=== PATIENT | male | born 2000 | race Caucasian/White ===

== ENCOUNTER 2025-05-31 00:57 | Emergency (ER) | payer BC, SELFPAY ==
--- OUTSIDE RECORDS SUMMARY | 2025-05-26 15:20 | XMS_ITS | Encounter Summary ---
Author Organization [facility] Address [address] [place] [address] Care Team Providers Care Safety Lead Name Role Phone Irasema Brandt Primary Care Provider Reason for Visit * Reason Comments Physical Yearly physical Encounter Details Date Type Department Care Team ([facility] st Contact Info) Description 05/26/2025 3:20 PM CDT Office Visit [facility] [place] [address] [place] [address] [facility] [address] [place] [address] Normal routine physical examination (Primary Dx); Environmental and seasonal allergies Social History Tobacco Use Types Packs/Day Years Used Date Smoking Tobacco: Never Smokeless Tobacco: Never Alcohol Use Standard Drinks/Week Comments No 0 (1 standard drink = 0.6 oz pur e alcohol) Feeling Safe Answer Date Recorded Within the last year, have y ou been afraid of your partner or ex-partner? No 05/05/2019 Within the last year, have y ou been humiliated or emotionally abused in other ways by your partner or ex-partner? No Within the last year, have y ou been kicked, hit, slapped, or otherwise physically hurt by your partner or ex-partner? No 05/05/2019 Within the last year, have y ou been raped or forced to have any kind of sexual activity by your partner or ex-partner? No 05/05/2019 Social Connections Answer Date Recorded In a typical week, how many times do you talk on the phone with family, friends, or neighbors? Never 05/05/2019 How often do you get together with friends or re latives? Never 05/05/2019 How often do you attend anabaptist or confucianist serv ices? Never 05/05/2019 Do you belong to any clubs o r organizations such as anabaptist groups, unions, fraternal or athletic groups, or school groups? No 05/05/2019 How often do you attend meet ings of the clubs or organizations you belong to? Never 05/05/2019 Are you , , di vorced, , never , or living with a partner? Never 05/05/2019 Financial Resource Strain Answer Date R ecorded How hard is it for you to pa y for the very basics like food, housing, medical care, and heating? Not hard at all 05/05/2019 Food Insecurity Answer Date Recorded Within the past 12 months, y ou worried that your food would run out before you got the money to buy more. Never true 05/05/20 19 Within the past 12 months, t he food you bought just didn't last and you didn't have money to get more. Never true 05/05/2019 Transportation Needs Answer Date Record ed In the past 12 months, has l ack of transportation kept you from medical appointments or from getting medications? No 04/2019 In the past 12 months, has l ack of transportation kept you from meetings, work, or from getting things needed for daily living? 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 Gender Identity Not on file Sexual Orientation Not on file documented as of this encounter Last Filed Vital Signs Vital Sign Reading Time Taken Comments Blood Pressure 122/64 05/26/2025 3:26 PM CDT Pulse 100 05/26/2025 3:26 PM CDT Temperature 36.5 C (97.7 F) 05/26/2025 3:26 PM CDT Respiratory Rate 18 05/26/2025 3:26 PM CDT Oxygen Saturation 98% 05/26/2025 3:26 PM CDT Inhaled Oxygen Concentration - - Weight 82.1 kg (181 lb) 05/26/2025 3:26 PM CDT Height 182.9 cm (6') 05/26/2025 3:26 PM CDT Body Mass Index 24.55 05/26/2025 3:26 PM CDT documented in this encounter Progress Notes * Joann Jacobo, STATION TENDER - 05/26/2025 3:35 PM CDT Chief Complaint Patient presents with Physical Yearly physical Patient Active Problem List Diagnosis Code Environmental and seasonal allergies J30.89 History of Present Illness A 24-year-old male presents for a yearly physical exam. The patient has not had any recent blood work and is generally well, though he occasionally experiences injuries. Recently, he sustained a head injury from a chain, resulting in a large knot that persisted for three days. He experiences nausea after breakfast due to postnasal drainage and uses nasal sprays intermittently. He was previously under the care of vocational childcare teacher Dr. Kelly in [place], where he received weekly allergy injections for 1-2 years but discontinued them due to logistical issues. He is uncertain about resuming the injections. He continues to take Singulair and cetirizine for his allergies. 10 point review of systems is otherwise negative except as mentioned above. Past Medical History: Diagnosis Date Asthma allergy and exercised induced Motion sickness Patient denies relevant medical history Current Outpatient Medications Medication Instructions cetirizine (ZYRTEC) 10 mg, Oral, DAILY EPINEPHrine (EPIPEN) 0.3 mg, IM, DAILY PRN fluticasone propionate (FLONASE) 50 mcg/spray [place], Suspension nasal inhaler 2 Sprays, Both Nostrils, DAILY montelukast (SINGULAIR) 10 mg, Oral, DAILY AT BEDTIME Past Surgical History: Procedure Laterality Date HX CLUB FOOT RELEASE HX TYMPANOSTOMY IA COLONOSCOPY FLX DX W/COLLJ SPEC WHEN PFRMD N/A 12/31/2016 COLONOSCOPY performed by Evelina Khoury MD at [facility] Past social, family, and medical history reviewed. BP 122/64 Pulse 100 Temp 97.7 ??F (36.5 ??C) Resp 18 Ht 6' (1.829 m) Wt 82.1 kg (181 lb) SpO2 98% BMI 24.55 kg/m?? Physical Exam Constitutional: General: He is not in acute distress. Appearance: Normal appearance. He is not ill-appearing. HENT: Head: Normocephalic. Right Ear: External ear normal. Left Ear: External ear normal. Nose: Nose normal. Eyes: Conjunctiva/sclera: Conjunctivae normal. Cardiovascular: Rate and Rhythm: Normal rate and regular rhythm. Pulses: Normal pulses. Heart sounds: Normal heart sounds. No murmur heard. Pulmonary: Effort: Pulmonary effort is normal. No respiratory distress. Breath sounds: Normal breath sounds. Musculoskeletal: Right lower leg: No edema. Left lower leg: No edema. Skin: General: Skin is warm and dry. Neurological: Mental Status: He is alert and oriented to person, place, and time. Psychiatric: Mood and Affect: Mood normal. Behavior: Behavior normal. ICD-10-CM ICD-9-CM 1. Normal routine physical examination Z00.00 V70.9 CBC WITH DIFFERENTIAL COMPREHENSIVE METABOLIC PANEL HEMOGLOBIN A1C LIPID PANEL TSH 2. Environmental and seasonal allergies J30.89 477.8 Assessment & Plan Health maintenance - BP normal today - Comprehensive blood tests today: thyroid function, blood sugar, kidney/liver function, electrolytes, blood counts - Cholesterol panel may be slightly elevated due to non-fasting - Advised yearly physical exams and follow-up on blood work Allergies - Taking Singulair and cetirizine - Previously received allergy shots, did not complete regimen - Advised to consider returning to vocational childcare teacher for evaluation and potential continuation of shots - Encouraged patient to contact office for referral if pursuing SHAHRZAD VaughnC The author of this note, patient (or authorized area representative), and all other persons present consent to the audio recording of this visit for charting documentation purposes. This note was automatically generated, edited by a Quality Regional Climate Change Analyst, and finalized by DEEPTHI Briseno. documented in this encounter Plan of Treatment Not on file documented as of this encounter Procedures Procedure Name Priority Date/Time Associated Diagnosis Comments CBC WITH DIFFERENTIAL Routine 05/26/2025 3:48 PM CDT Normal routine physical examination TSH Routine 05/26/2025 3:48 PM CDT Normal routine physical examination HEMOGLOBIN A1C Routine 05/26/2025 3:48 PM CDT Normal routine physical examination LIPID PANEL Routine 05/26/2025 3:48 PM CDT Normal routine physical examination COMPREHENSIVE METABOLIC PANEL Routine 05/26/2025 3:48 PM CDT Normal routine physical examination documented in this encounter Results * TSH (05/26/2025 3:48 PM CDT) TSH 1.20 0.40 - 4.50 mIU/L [facility] Comment: Test Performed at: [facility] [address] [place] [address] Britany Werner MD Blood 05/26/2025 3:48 PM CDT 05/27/2025 2:09 AM CDT Kevinotilioedgar Jacobo STATION TENDER CHEMISTRY ORDERABLES Final Result [facility] [phone] [facility] [address] [place] [address] * (ABNORMAL) LIPID PANEL (05/26/2025 3:48 PM CDT) CHOLESTEROL 154 <200 mg/dL [facility] HDL 35(L) > OR = 40 mg/dL [facility] TRIGLYCERIDE 196(H) <150 mg/dL [facility] LDL CALCULATED 90 mg/dL (calc) [facility] Comment: Reference range: <100 Desirable range <100 mg/dL for primary prevention; <70 mg/dL for patients with CHD or diabetic patients with > or = 2 CHD risk factors. LDL-C is now calculated using the Rafa calculation, which is a validated novel method providing better accuracy than the Friedewald equation in the estimation of LDL-C. Miguel MARTÍNEZ et al. LEANNA. 2013;310(30): 5831-5146 (http://education.eZ Systems/faq/FKE439) CHOL/HDL RATIO 4.4 <5.0 (calc) [facility] NON-HDL CHOLESTEROL 119 <130 mg/dL (calc) [facility] Comment: For patients with diabetes plus 1 major ASCVD risk factor, treating to a non-HDL-C goal of <100 mg/dL (LDL-C of <70 mg/dL) is considered a therapeutic option. Test Performed at: [facility] [address] [facility] [place] [address] Britany Werner MD Blood 05/26/2025 3:48 PM CDT 05/27/2025 2:09 AM CDT Kevinthai Shmuel Jacobo STATION TENDER CHEMISTRY ORDERABLES Final Result [facility] [phone] [facility] [address] [place] [address] [address] * HEMOGLOBIN A1C (05/26/2025 3:48 PM CDT) HEMOGLOBIN A1C 5.2 <5.7 % [facility] Comment: For the purpose of screening for the presence of diabetes: <5.7% Consistent with the absence of diabetes 5.7-6.4% Consistent with increased risk for diabetes (prediabetes) > or =6.5% Consistent with diabetes This assay result is consistent with a decreased risk of diabetes. Currently, no consensus exists regarding use of hemoglobin A1c for diagnosis of diabetes in children. According to [place] Diabetes Association (ADA) guidelines, hemoglobin A1c <7.0% represents optimal control in non- diabetic patients. Different metrics may apply to specific patient populations. Standards of Medical Care in Diabetes(ADA). ESTIMATED AVERAGE GLUCOSE (MG/DL) 103 mg/dL [facility] ESTIMATED AVERAGE GLUCOSE (MMOL/L) 5.7 mmol/L [facility] Comment: Test Performed at: [place] [address] [facility] [place] [address] Britany Werner MD Blood 05/26/2025 3:48 PM CDT 05/27/2025 2:09 AM CDT Kevinthai Shmuel Jacobo STATION TENDER CHEMISTRY ORDERABLES Final Result [facility] [phone] [facility] [address] [place] [address] * COMPREHENSIVE METABOLIC PANEL (05/26/2025 3:48 PM CDT) GLUCOSE 93 65 - 99 mg/dL [facility] Comment: Fasting reference interval BUN 13 7 - 25 mg/dL [facility] CREATININE 1.18 0.60 - 1.24 mg/dL [facility] GFR 88 > OR = 60 mL/min/1. 73m2 [facility] BUN/CREAT RATIO SEE NOTE: 6 - 22 (calc) [facility] Comment: Not Reported: BUN and Creatinine are within reference range. SODIUM 142 135 - 146 mmol/L [facility] POTASSIUM 3.9 3.5 - 5.3 mmol/L [facility] CHLORIDE 106 98 - 110 mmol/L [facility] CO2 27 20 - 32 mmol/L [facility] CALCIUM 9.4 8.6 - 10.3 mg/dL [facility] TOTAL PROTEIN 6.8 6.1 - 8.1 g/dL [facility] ALBUMIN 4.7 3.6 - 5.1 g/dL [facility] GLOBULIN 2.1 1.9 - 3.7 g/dL (calc) [facility] ALBUMIN/GLOBULIN RATIO 2.2 1.0 - 2.5 (calc) [facility] BILIRUBIN TOTAL 0.7 0.2 - 1.2 mg/dL [facility] ALKALINE PHOSPHATASE 57 36 - 130 U/L [facility] AST 13 10 - 40 U/L [facility] ALT 15 9 - 46 U/L [facility] Comment: Test Performed at: [facility] [address] [place] [address] Britany Werner MD Blood 05/26/2025 3:48 PM CDT 05/27/2025 2:09 AM CDT us Joann Jacobo STATION TENDER CHEMISTRY ORDERABLES Final Result [facility] [phone] [facility] [address] [place] [address] * CBC WITH DIFFERENTIAL (05/26/2025 3:48 PM CDT) WBC 7.8 3.8 - 10.8 Thousand/u L [facility] RBC 4.83 4.20 - 5.80 Million/uL [facility] HEMOGLOBIN 14.1 13.2 - 17.1 g/dL [facility] HEMATOCRIT 42.3 38.5 - 50.0 % [facility] MCV 87.6 80.0 - 100.0 fL [facility] MCH 29.2 27.0 - 33.0 pg [facility] MCHC 33.3 32.0 - 36.0 g/dL [facility] Comment: For adults, a slight decrease in the calculated MCHC value (in the range of 30 to 32 g/dL) is most likely not clinically significant; however, it should be interpreted with caution in correlation with other red cell parameters and the patient's clinical condition. RDW 12.3 11.0 - 15.0 % [facility] PLATELETS 233 140 - 400 Thousand/u L [facility] MPV 11.1 7.5 - 12.5 fL [facility] NEUTROPHIL ABSOLUTE 5,366 1,500 - 7,800 cells/uL [facility] LYMPHOCYTE ABSOLUTE 1,529 850 - 3,900 cells/uL [facility] MONOCYTE ABSOLUTE 554 200 - 950 cells/uL [facility] EOSINOPHIL ABSOLUTE 289 15 - 500 cells/uL [facility] BASOPHILS ABSOLUTE 62 0 - 200 cells/uL [facility] NEUTROPHIL 68.8 % [facility] LYMPHOCYTES 19.6 % [facility] MONOCYTE 7.1 % [facility] EOSINOPHILS 3.7 % [facility] BASOPHILS 0.8 % [facility] Comment: Test Performed at: [facility] [address] [place] [address] Britany Werner MD Blood 05/26/2025 3:48 PM CDT 05/27/2025 2:09 AM CDT us Kevinotilioedgar Jacobo STATION TENDER HEMATOLOGY ORDERABLES Carline l Result [facility] [phone] [facility] [address] [place] [address] documented in this encounter Visit Diagnoses Diagnosis Normal routine physical examination- Primary Reserved for inherently not codable concepts WITHOUT codable children Environmental and seasonal allergies documented in this encounter Care Teams Safety Lead Relationship Specialty Start Date End Date Irasema Brandt DO [address] [place] [address] PCP - General Family Practice 07/22/23 documented as of this encounter
--- OUTSIDE RECORDS SUMMARY | 2025-05-31 01:05 | XMS_ITS | Clinical Summary ---
Author Organization [facility] Business Office Address [address] [place] [address] Care Team Providers Care Braider Operator Name Role Phone Irasema Brandt Primary Care Provider Allergies No known active allergies Medications EPINEPHrine (EPIPEN) 0.3 mg/0.3 mL Auto-InjectorI ndications:Env ironmental and seasonal allergies Inject 0.3 mL (0.3 mg) by intramuscular injection 1 time daily as needed for Anaphylaxis. 1 Each 0 0 Active Additional Information Patient not taking.Reported on 05/26/2025 cetirizine (ZyrTEC) 10 mg tabletIndicati ons:Environmen ely and seasonal allergies Take 1 Tablet (10 mg) by mouth daily. 90 Tablet 4 0 Active montelukast (SINGULAIR) 10 mg tabletIndicati ons:Environmen ely and seasonal allergies Take 1 Tablet (10 mg) by mouth daily at bedtime. 90 Tablet 3 5 Active fluticasone propionate (FLONASE) 50 mcg/spray [place], Suspension nasal inhalerIndicat ions:Environme ntal and seasonal allergies Administer 2 Sprays in each nostril daily. 16 Gram 3 5 Active Additional Information Patient not taking.Reported on 05/26/2025 Active Problems Problem Noted Date Diagnosed Date Environmental and seasonal allergies 08/15/2024 Resolved Problems Problem Noted Date Diagnosed Date Resolved Date Tympanostomy tube check 04/15/2019 05/0 03/2025 TMJ (dislocation of temporomandibular joint) 8 10/08/2018 Dysfunction of right eustachian tube 10/08/2018 04/03/2025 Right ear pain 10/08/2018 04/03/2025 Allergic rhinitis 10/08/2018 04/03/2025 Right otitis media with effusion 10/08/2018 04/03/2025 TMJ inflammation 10/08/2018 04/03/2025 Mesenteric adenitis 12/21/2016 04/03/20 25 Blood in stool 12/21/2016 04/03/2025 Right sided abdominal pain 12/21/2016 0 04/03/2025 Overview (03/28/2021): Likely secondary to mesenteric adenitis Encounters Date Type Department Care Team Description 05/29/2025 Results Follow-Up [facility] [address] [place] [address] Joann Jacobo FNP TSH, LIPID PANEL, HEMOGLOBIN A1C, Additional followed-up results: 2 05/26/2025 3:20 PM CDT Office Visit [facility] [address] [place] [address] Joann Jacobo FNP Normal routine physical examination (Primary Dx); Environmental and seasonal allergies 05/16/2025 External Device Data STL ABSTRACTION Provider, Abstract 04/20/2025 External Device Data STL ABSTRACTION Provider, Abstract 04/20/2025 External Device Data STL ABSTRACTION Provider, Abstract 04/19/2025 External Device Data STL ABSTRACTION Provider, Abstract 04/18/2025 External Device Data STL ABSTRACTION Provider, Abstract 04/03/2025 3:20 PM CDT Office Visit [facility] [address] [place] [address] Joann Jacobo FNP Right otitis media with effusion (Primary Dx); Environmental and seasonal allergies 03/14/2025 External Device Data STL ABSTRACTION Provider, Abstract from Last 3 Months Immunizations Immunization Administration Dates Next Due (ACTHIB/HIBERIX)(2 MOS-5 YRS /6 WKS-4 YRS) HAEMOPHILUS INFLUENZAE TYPE B VACCINE (HIB), PRP-T CONJUGATE, 4 DOSE, 0.5 ML IM 06/08/2002,2000,2000 (ADACEL/BOOSTRIX)(10 YR UP) TDAP VACCINE, 0.5ML, IM 03/30/2014,01/19/2014 (M-M-R II/PRIORIX)(12 MO UP) MEASLES, MUMPS AND RUBELLA VIRUS VACCINE, 0.5 ML IM/SUBCUT 05/22/2006,06/22/2002 (RECOMBIVAX HB/ENGERIX-B)(0- 19 YRS) HEPATITIS B VACCINE 5 MCG/0.5 ML OR 10 MCG/0.5 ML PED OR ADOL 3 DOSE (PF), IM 02/17/2001,2000 (VARIVAX)(12 MOS UP)VARICELL A VIRUS VACCINE (PF) 0.5 ML, SUB CUT 08/18/2001 Dt Dtp Dtap Vaccine 05/22/2006, 2,02/17/2001,12/23,2000 HIB, Unspecified Formulation 06/08/2002, 02/17/2001,2000,10/26 Hepatitis B Vaccine 02/17/2001,2000,1999 IPV/OPV 05/22/2006, 2,2000,10/26 Meningococcal A Conjugate Vaccine IM 06/23/2018 Pneumococcal 7-valent conjug ate vaccine IM 08/18/2001,02/17/2001,2000,10/26 Family History Medical History Relation Name Comments Healthy Father Diabetes Maternal Grandfather Heart Disease Maternal Grandfather Healthy Maternal Grandmother Hypertension Mother Diabetes Paternal Grandfather Diabetes Paternal Grandmother Stroke Paternal Grandmother Healthy Sister Shanell Relation Name Status Comments Father Alive Maternal Grandfather Alive Maternal Grandmother Alive Mother Alive Paternal Grandfather Alive Paternal Grandmother Alive Sister Shanell Alive Social History Tobacco Use Types Packs/Day Years [...] Never 05/05/2019 How often do you attend hindu or pentecostal serv ices? 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 Gender Identity Not on file Sexual Orientation Not on file Last Filed Vital Signs Vital Sign Reading [...] Mass Index 24.55 05/26/2025 3:26 PM CDT Plan of Treatment Health Maintenance Due Date Last Done Comments HPV VACCINES (1 - Male 3-dos e series) 2015 DTAP/TDAP/TD VACCINES (8 - T d or Tdap) 03/30/2024 03/30/2014, 01/19/2014, 05/22/2006, Additional history exists INFLUENZA VACCINE (#1) 2025 09/20/2018 HEPATITIS B VACCINES Completed 02/17/2001, 02/17/2001, 2000, Additional history exists Procedures Procedure Name Priority Date/Time Associated Diagnosis [...] 3:48 PM CDT Normal routine physical examination from Last 3 Months Results * CBC WITH DIFFERENTIAL (05/26/2025 3:48 PM [...] [facility] Comment: Test Performed at: [facility] [address] [place] [address] Britany Werner MD Blood 05/26/2025 3:48 PM CDT 05/27/2025 2:09 AM CDT us Joann Jacobo TALENT ANALYST HEMATOLOGY ORDERABLES Carline l Result [facility] [phone] [address] * TSH (05/26/2025 3:48 PM CDT) [facility] TSH 1.20 0.40 - 4.50 mIU/L [facility] Comment: Test Performed at: [address] [address] Britany Werner MD Blood 05/26/2025 3:48 PM CDT 05/27/2025 2:09 AM CDT Kevinotilioedgar Jacobo [facility] CHEMISTRY ORDERABLES Final Result [facility] [phone] [address] * HEMOGLOBIN A1C (05/26/2025 3:48 PM CDT) [facility] HEMOGLOBIN A1C 5.2 <5.7 % [facility] Comment: For the purpose of screening for the presence of diabetes: <5.7% Consistent with the absence of diabetes 5.7-6.4% Consistent with increased risk for diabetes (prediabetes) > or =6.5% Consistent with diabetes This assay result is consistent with a decreased risk of diabetes. Currently, no consensus exists regarding use of hemoglobin A1c for diagnosis of diabetes in children. According to [place] Diabetes Association (ADA) guidelines, hemoglobin A1c <7.0% represents optimal control in non- diabetic patients. Different metrics may apply to specific patient populations. Standards of Medical Care in Diabetes(ADA). ESTIMATED AVERAGE GLUCOSE (MG/DL) 103 mg/dL [facility] ESTIMATED AVERAGE GLUCOSE (MMOL/L) 5.7 mmol/L [facility] Comment: Test Performed at: [facility] [employer] [address] Britany Werner MD Blood 05/26/2025 3:48 PM CDT 05/27/2025 2:09 AM CDT us Joann Jacobo [facility] CHEMISTRY ORDERABLES Final Result [facility] [phone] [facility] [address] [place] [address] * (ABNORMAL) LIPID PANEL (05/26/2025 3:48 PM [...] of LDL-C. Miguel MARTÍNEZ et al. LEANNA. 2013;310(19): 7611-3360 (http://education.Viroblock/faq/XWV222) CHOL/HDL RATIO 4.4 <5.0 (calc) [facility] NON-HDL CHOLESTEROL 119 <130 mg/dL (calc) [facility] Comment: For patients with diabetes plus 1 major ASCVD risk factor, treating to a non-HDL-C goal of <100 mg/dL (LDL-C of <70 mg/dL) is considered a therapeutic option. Test Performed at: [facility] [address] [facility] [address] Britany Werner MD Blood 05/26/2025 3:48 PM CDT 05/27/2025 2:09 AM CDT Joann Jacobo [facility] CHEMISTRY ORDERABLES Final Result [facility] [phone] [facility] [address] [place] [address] * COMPREHENSIVE METABOLIC PANEL (05/26/2025 3:48 PM CDT) GLUCOSE 93 65 - 99 mg/dL [facility] Comment: Fasting reference interval BUN 13 7 - 25 mg/dL [facility] CREATININE 1.18 0.60 - 1.24 mg/dL [facility] GFR 88 > OR = 60 mL/min/1. 73m2 [facility] BUN/CREAT RATIO SEE NOTE: 6 - (calc) [facility] Comment: Not Reported: [...] [facility] Comment: Test Performed at: [facility] [address] [place] [address] Britany Werner MD Blood 05/26/2025 3:48 PM CDT 05/27/2025 2:09 AM CDT Joann Jacobo TALENT ANALYST CHEMISTRY ORDERABLES Final Result [facility] [phone] [facility] [address] [address] [phone] from Last 3 Months Insurance RX MEDIMPACT Member Subscriber Plan / Payer (Ef fective for All Dates) Name:Braden Robles Marycarmen Relation to Subscriber:Self Name:Margaret Braden Marycarmen Payer ID:Not on file Group ID:[id number] Type:RX Commercial Address: [place] [place] [facility] Care Teams Braider Operator Relationship Specialty Start Date End Date Irasema Brandt DO [address] [place] [address] PCP - General Family Practice 07/22/23
--- OUTSIDE RECORDS SUMMARY | 2025-05-31 01:05 | XMS_ITS | Encounter Summary ---
Author Organization [facility] Address [address] [place] [address] Care Team Providers Care Assembling Motor Builder Name Role Phone Irasema Brandt Primary Care Provider Encounter Details Date Type Department Care Team (Late st Contact Info) Description 05/29/2025 Results Follow-Up [facility] [address] [place] [address] [facility] [address] [place] [address] TSH, LIPID PANEL, HEMOGLOBIN A1C, Additional followed-up results: 2 Social History Tobacco Use Types Packs/Day Years [...] Never 05/05/2019 How often do you attend quaker or jehovah's witness serv ices? 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
--- OUTSIDE RECORDS SUMMARY | 2025-05-31 01:05 | XMS_ITS | Clinical Summary ---
Author Organization [facility] Business Office Address [address] [place] [address] Care Team Providers Care Inventory Control Clerk Name Role Phone Tavon Ayoub Primary Care Provider [phone] Allergies No known active allergies Medications fluticasone propionate (FLONASE) 50 mcg/spray [place], Suspension nasal inhalerIndicatio ns:Dysfunction of right eustachian tube,Acute non-recurrent pansinusitis Administer 2 Sprays in each nostril daily. 16 Gram 3 07/20/20 20 Active montelukast (Singulair) 10 mg tabletIndication s:Environmental and seasonal allergies Take 1 Tablet (10 mg) by mouth daily at bedtime. 30 Tablet 11 07/20/20 20 Active albuterol HFA 90 mcg inhalerIndicatio ns:Environmental and seasonal allergies,Wheezi ng Take 2 Puffs by inhalation every 6 hours as needed for Shortness of Breath. 18 Gram 5 07/20/20 20 Active cetirizine (ZyrTEC) 10 mg tabletIndication s:Environmental and seasonal allergies Take 1 Tablet (10 mg) by mouth daily. 90 Tablet 4 07/20/20 20 Active levocetirizine (Xyzal) 5 mg tabletIndication s:Chronic seasonal allergic rhinitis due to pollen,Allergic rhinitis due to house dust mite,Chronic allergic rhinitis due to animal hair and dander,Allergic rhinitis due to mold,Allergic conjunctivitis, bilateral Take 1 Tablet (5 mg) by mouth late in the day. 30 Tablet 11 09/14/20 Active azelastine (ASTELIN) 137 mcg/actuation nasal sprayIndications :Chronic seasonal allergic rhinitis due to pollen,Allergic rhinitis due to house dust mite,Chronic allergic rhinitis due to animal hair and dander,Allergic rhinitis due to mold,Allergic conjunctivitis, bilateral Administer 2 Sprays in each nostril 2 times daily. 30 mL 09/14/20 Active EPINEPHrine (EPIPEN) 0.3 mg/0.3 mL Auto-InjectorInd ications:Environ mental and seasonal allergies Inject 0.3 mL (0.3 mg) by intramuscular injection 1 time daily as needed for Anaphylaxis. 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 Gender Identity Not on file Sexual Orientation Not on file Occupation Industry Job Start Date Job End Date Not on file Not on file Not on file Not on file Last Filed Vital Signs Vital Sign Reading Time Taken Comments Blood Pressure 116/70 03/04/2021 3:19 PM CDT Pulse 108 07/20/2020 1:14 PM CDT Temperature 36.7 C (98.1 F) 07/20/2020 1:14 PM CDT Respiratory Rate 16 05/09/2019 10:14 AM CDT Oxygen Saturation 96% 07/20/2020 1:14 PM CDT Inhaled Oxygen Concentration - - Weight 68 kg (150 lb) 03/04/2021 3:19 PM CDT Height 182.9 cm (6') 03/04/2021 3:19 PM CDT Body Mass Index 20.34 03/04/2021 3:19 PM CDT Plan of Treatment Health Maintenance Due Date Last Done Comments HPV VACCINES (1 - Male 3-dos e series) 2015 DTAP/TDAP/TD VACCINES (8 - T d or Tdap) 03/30/2024 03/30/2014, 01/19/2014, 05/22/2006, Additional history exists INFLUENZA VACCINE (#1) 2024 09/20/2018 HEPATITIS B VACCINES Completed 02/17/2001, 02/17/2001, 2000, Additional history exists Preventative Visit- Commercial Completed 0 05/26/2025, 05/05/2019, 04/02/2018, Additional history exists Insurance RX MEDIMPACT Member Subscriber Plan / Payer (Ef fective for All Dates) Name:Braden Robles Relation to Subscriber:Self Name:Braden Robles Payer ID:Not on file Group ID:[id number] Type:RX Commercial Address: [address] [facility] Advance Directives For more information, please contact: [phone] * Full Code (Latest Code Status on File) Date Activated Date Inactivated Comments 12/31/2016 12:26 PM 12/31/2016 4:27 PM Care Teams Inventory Control Clerk Relationship Specialty Start Date End Date Tavon Ayoub DO PCP - General Family Practice 09/23/13
--- OUTSIDE RECORDS SUMMARY | 2025-05-31 01:05 | XMS_ITS | Encounter Summary ---
Author Organization [facility] Address [address] [place] [address] Care Team Providers Care Squeak Rattle And Leak Repairer Name Role Phone Tavon Ayoub DO Primary Care Provider [phone] Encounter Details Date Type Department Care Team (Latest Contact Info) Description 08/01/2005 Outpatient Historical [facility] Dermatology- [facility] Dariel [address] [place] [address] Ezio Mosqueda MD [address] [place] [address] OTHER ATOPIC DERMATITIS (Primary Dx) Social History Tobacco Use Types Packs/Day Years Used Date Smoking Tobacco: Never Assessed Sex and Gender Information Value Date Recorded Sex Assigned at Not on file 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
--- OUTSIDE RECORDS SUMMARY | 2025-05-31 01:05 | XMS_ITS | Encounter Summary ---
Author Organization [facility] Address [address] [place] [address] Care Team Providers Care Military Exchange Wireless Manager Name Role Phone Tavon Ayoub DO Primary Care Provider [phone] Encounter Details Date Type Department Care Team (Latest Contact Info) Description 07/14/2005 Outpatient Historical [facility] Tin Ruiz MD NO ADDRESS ON FILE ABDOMINAL PAIN UNSPEC SITE (Primary Dx); DYSURIA; OTHER ATOPIC DERMATITIS Social History Tobacco Use Types Packs/Day Years Used Date Smoking Tobacco: Never Assessed Sex and Gender Information Value Date Recorded Sex Assigned at Not on file 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
[2025-05-31 01:12] VITALS: BP 140/82; PULSE 76; RESP 16; TEMP 36.8; O2SAT 98; BMI 24.4
[2025-05-31 01:19] VITALS: BP 134/77; PULSE 80; O2SAT 99
--- NOTE | 2025-05-31 01:30 | USR_ITS ---
PROCEDURE INFORMATION: Exam: US Scrotum Exam date and time: 05/31/2025 1:38 AM Age: 24 years old Clinical indication: Edema; Scrotum pain; Additional info: RT testicular swelling, pain TECHNIQUE: Imaging protocol: Real-time ultrasound of the scrotum and contents with color Doppler and image documentation. COMPARISON: No relevant prior studies available. FINDINGS: Right testicle: The right testicle measures 3.7 x 2.5 x 2.7 cm with vascular flow. There is a heterogeneously hypodense lesion in the right testicle measuring at least 2.6 x 2.2 x 2.0 cm with vascular flow which protrudes through the capsule of the testicle inferior posteriorly. Findings are concerning for neoplasm. Urology consultation recommended. Left testicle: The left testicle measures 4.0 x 2.8 x 1.9 cm with vascular flow. Epididymides: The right epididymis measures 3.7 x 1.2 x 1.1 cm with vascular flow. The left epididymis measures 2.9 x 1.5 x 1.2 cm with vascular flow. Scrotum/soft tissues: Large right-sided hydrocele. US/US scrotum [id number] IMPRESSION: There is a heterogeneously hypodense lesion in the right testicle measuring at least 2.6 x 2.2 x 2.0 cm with vascular flow which protrudes through the capsule of the testicle inferior posteriorly. Findings are concerning for neoplasm. Urology consultation recommended.
--- NOTE | 2025-05-31 02:34 | CTR_ITS ---
PROCEDURE INFORMATION: Exam: CT Abdomen And Pelvis With Contrast Exam date and time: 05/31/2025 3:09 AM Age: 24 years old Clinical indication: Other: Right testicular swelling; Abdominal pain; Flank; Left; Additional info: Left flank pain, testicular swelling TECHNIQUE: Imaging protocol: Computed tomography of the abdomen and pelvis with contrast. Radiation optimization: All CT scans at this facility use at least one of these dose optimization techniques: automated exposure control; mA and/or kV adjustment per patient size (includes targeted exams where dose is matched to clinical indication); or iterative reconstruction. Contrast material: OMNI 350; Contrast volume: 100 ml; Contrast route: INTRAVENOUS (IV); COMPARISON: US scrotum [id number] 05/31/2025 1:38 AM RADIATION DOSE METRICS: Total DLP (mGy-cm): 516.6 FINDINGS: Lungs: Lung bases are clear as visualized. Liver: Normal. No mass. Gallbladder and biliary ducts: Normal. No calcified stones. No ductal dilation. Pancreas: Normal. No ductal dilation. Spleen: Normal. No splenomegaly. Adrenal glands: Normal. No mass. Kidneys and ureters: Normal. No hydronephrosis. Stomach and bowel: Unremarkable. No obstruction. No mucosal thickening. Appendix: No evidence of appendicitis. Intraperitoneal space: Unremarkable. No free air. No significant fluid collection. Vasculature: Unremarkable. No abdominal aortic aneurysm. Lymph nodes: There are a few small retroperitoneal lymph nodes. There are slightly enlarged retroperitoneal lymph nodes at the iliac bifurcation on the right measuring 16 mm in size and on the left measuring 15 mm. Urinary bladder: Unremarkable as visualized. Reproductive: There is a right-sided hydrocele. Nodular density appears to arise from the right testicle with a low-density center and nodular wall thickening measuring 2.8 cm in size. Please refer to report from testicular ultrasound performed on 05/31/2025. Bones/joints: Unremarkable. No acute fracture. Soft tissues: There is a small fat filled periumbilical hernia. CT/CT abdomen pelvis w con* [id number] IMPRESSION: 1. Right testicular mass better visualized on recent ultrasound. There is also a hydrocele on the right. 2. Slightly enlarged retroperitoneal lymph nodes at the iliac bifurcation.
[2025-05-31] MEDS: iohexol 350 mg/mL 500 mL Btl (per mL) IV (03:12)
[2025-05-31 03:14] LABS: Hematocrit 42.2 % (37-53); Hemoglobin 13.90 g/dL (11.27-16.99); Mean Corpuscular HGB Conc 32.9 g/dL (30-55); Mean Corpuscular Hemoglobin 28.7 pg (27-33); Mean Corpuscular Volume 87.0 fl (82-101); Nucleated Red Blood Cells % 0 %; Platelet Count 228 10^3/cmm (157-399); Red Blood Count 4.85 10^6/uL (3.85-5.65); White Blood Count 10.31 10^3/uL (3.29-11.43)
[2025-05-31 03:17] LABS: Glucose Urine UA Negative (Normal); Nitrate Urine Negative (Negative)
[2025-05-31 03:20] VITALS: BP 135/85; PULSE 68; O2SAT 100
[2025-05-31 03:21] LABS: Add Urine Microscopic? YES
[2025-05-31 03:24] VITALS: RESP 16
[2025-05-31] MEDS: morphine 4 mg/mL SDV 1 mL IVP (03:24)
[2025-05-31 03:26] LABS: Specific Gravity, Urine 1.041 (1.005-1.030)
[2025-05-31 03:35] LABS: Alanine Aminotransferase 14 U/L (0-41); Albumin Level 4.5 g/dL (3.5-5.2); Alkaline Phosphatase 76 U/L (40-130); Anion Gap 16.7 (5-19); Aspartate Amino Transferase 14 U/L (0-40); Blood Urea Nitrogen 11 mg/dL (6-20); Calcium 9.6 mg/dL (8.5-10.5); Carbon Dioxide 26 mmol/L (22-29); Chloride 104 mmol/L (98-107); Creatinine Clr Calc Pharmacy 141.8114; Globulin 3.0 g/dL (1.3-4.6); Glucose 100 mg/dL (65-115); Osmolality Calculated 295 mOsm/kg (285-295); Potassium 3.7 mmol/L (3.5-5.1); Sodium 143 mmol/L (136-145); Total Protein 7.5 g/dL (6.6-8.7)
[2025-05-31 04:21] VITALS: BP 131/89; PULSE 78; O2SAT 100
[2025-05-31 05:24] VITALS: BP 123/77; PULSE 60; O2SAT 98
--- NOTE | 2025-05-31 06:20 | ED_ITS ---
HPI - Male Genitourinary 2 General: Chief complaint: Urogenital-Male Stated complaint: Rt Testicle Swollen\Back Pain Time Seen by Provider: 05/31/25 01:15 History of Present Illness: Since patient is a generally well 24-year-old male seen for intermittent right testicular pain and swelling as well as intermittent left lower back pain. He is not certain whether these 2 are related. 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 He has no history of injury of the lower back. As for his testicular swelling, it has been coming and going over the last several weeks and got acutely worse over the last 2 days prompting visit to the emergency department. He had been seen in the outpatient clinic and prescribed steroids and antibiotics without a definitive diagnosis being made. He had been scheduled for outpatient ultrasound of the testicles but this had not been performed yet. He currently complains of 4 out of 10 right testicular pain and swelling. He describes the pain as someone tying a fishing line around the testicle. He denies trauma to the region. He denies high risk sexual encounters and has not had any penile discharge, dysuria, and has no other acute complaints. Related Data Previous Rx's ?Medication ?Instructions ?Recorded amoxicillin 875 mg-potassium 1 tab PO BID 7 days #14 t abs 07/20/23 clavulanate 125 mg tablet oxycodone-acetaminophen 5 mg-325 1 tab PO Q8H PRN pain #20 tabs 05/31/25 mg tablet (Percocet) Allergies Allergy/AdvReac Type Severity Reaction Status Date / Time No Known Allergies Allergy Unverified 07/20/23 08:47 Physical Exam 2 Const: COMMON NORMALS: no acute distress, patient oriented x3 and alert HENMT: COMMON NORMALS: normocephalic and atraumatic HEAD & SCALP: n ormocephalic and atraumatic Eye: COMMON NORMALS: Equal, round and reactive pupils present, EOMs intact bilaterally and no scleral icterus PUPIL: Yes Equal, round and reactive pupils present Resp: COMMON NORMALS: normal respiratory effort and No retractions Cardio: COMMON NORMALS: regular rate, regular rhythm and No murmurs present (Cardio) RATE: regular rate RHYTHM: regular rhythm GI: COMMON NORMALS: Normal to inspection, nondistended, normoactive bowel sounds present, Soft to palpation and non-tender PALPATION: Yes Soft to palpation : OTHER: Right testicle is swollen and mildly tender when compared with the left. No erythema or warmth. No high riding quality. Normal cremaster reflex. Back/Pelvis: OTHER: Reproducible pain with palpation of the left paraspinal musculature and quadratus lumborum region. No pain with palpation of the spine or obvious deformity. Neuro: COMMON NORMALS: patient oriented x3 SENSORIUM/ORIENTATION: Yes alert Skin: COMMON NORMALS: no rashes or lesions noted GENERAL SKIN EXAM: no rashes or lesions noted Course 2 Vital Signs: Vital signs: Vital Signs Temperature 98.2 F 05/31/25 01:12 Pulse Rate 60 05/31/25 05:24 Respiratory Rate 16 05/31/25 03:24 Blood Pressure 123/77 05/31/25 05:24 Pulse Oximetry 98 05/31/25 05:24 Oxygen Delivery Me thod Room Air 05/31/25 04:21 MDM - Male Medical Decision Making In summary, patient is a generally well-appearing 24-year-old male seen for low back pain and right testicular pain. Ultrasound shows both hydrocele and a testicular mass highly concerning for oncologic process. CT of the abdomen and pelvis was performed which did not show evidence of acute pathology causing his lower back pain. There was mild lymph node inflammation noted in the iliac region of uncertain etiology. Patient will be discharged in stable and improved condition with a very short course of pain medication and close follow-up to urology for definitive management of his testicular mass. He shows good understanding and agrees to the plan and knows that he is always welcome back to the emergency department if needed before outpatient follow-up can be obtained Lab Data 05/31/25 03:00 05/31/25 03:00 Radiology Impressions Scrotum Ultrasound 05/31/25 01:30 IMPRESSION: There is a heterogeneously hypodense lesion in the right testicle measuring at least 2.6 x 2.2 x 2.0 cm with vascular flow which protrudes through the capsule of the testicle inferior posteriorly. Findings are concerning for neoplasm. Urology consultation recommended. Abdomen/Pelvis CT 05/31/25 02:34 IMPRESSION: 1. Right testicular mass better visualized on recent ultrasound. There is also a hydrocele on the right. 2. Slightly enlarged retroperitoneal lymph nodes at the iliac bifurcation. Laboratory Results WBC 10.31 10^3/uL (3.29-11.43) 05/31/25 03:00 RBC 4.85 10^6/uL (3.85-5.65) 05/31/25 03:00 Hgb 13.90 g/dL (11.27-16.99) 05/31/25 03:00 Hct 42.2 % (37-53) 05/31/25 03:00 MCV 87.0 fl (82-101) 05/31/25 03:00 MCH 28.7 pg (27-33) 05/31/25 03:00 MCHC 32.9 g/dL (30-55) 05/31/25 03:00 RDW 12.1 % (12.1-15.1) 05/31/25 03:00 Plt Count 228 10^3/cmm (157-399) 05/31/25 03:00 MPV 10.1 fL (7.4-10.4) 05/31/25 03:00 Neut % (Auto) 68.0 % 05/31/25 03:00 Lymph % (Auto) 23.1 % 05/31/25 03:00 [place] % (Auto) 7.3 % 05/31/25 03:00 Eos % (Auto) 0.9 % 05/31/25 03:00 Baso % (Auto) 0.5 % 05/31/25 03:00 Neut # (Auto) 7.02 10^3/uL (1.8-7.7) 05/31/25 03:00 Lymph # (Auto) 2.4 10^3/uL (0.8-4.8) 05/31/25 03:00 [place] # (Auto) 0.8 10^3/uL (0.2-0.9) 05/31/25 03:00 Eos # (Auto) 0.1 10^3/uL (0.0-0.8) 05/31/25 03:00 Baso # (Auto) 0.1 10^3/uL (0.0-0.1) 05/31/25 03:00 Nucleated RBC % (auto) 0 % 05/31/25 03:00 Nucleated RBCs # 0.0 /100WBC 05/31/25 03:00 Sodium 143 mmol/L (136-145) 05/31/25 03:00 Potassium 3.7 mmol/L (3.5-5.1) 05/31/25 03:00 Chloride 104 mmol/L (98-107) 05/31/25 03:00 Carbon Dioxide 26 mmol/L (22-29) 05/31/25 03:00 Anion Gap 16.7 (5-19) 05/31/25 03:00 BUN 11 mg/dL (6-20) 05/31/25 03:00 Creatinine 0.9 mg/dL (0.7-1.2) 05/31/25 03:00 GFR Calculation 103.7 mL/min (90-130) 05/31/25 03:00 Glucose 100 mg/dL (65-115) 05/31/25 03:00 Calculated Osmolality 295 mOsm/kg (285-295) 05/31/25 03:00 Calcium 9.6 mg/dL (8.5-10.5) 05/31/25 03:00 Total Bilirubin 1.0 mg/dL (0.15-1.2) 05/31/25 03:00 AST 14 U/L (0-40) 05/31/25 03:00 ALT 14 U/L (0-41) 05/31/25 03:00 Alkaline Phosphatase 76 U/L (40-130) 05/31/25 03:00 Total Protein 7.5 g/dL (6.6-8.7) 05/31/25 03:00 Albumin 4.5 g/dL (3.5-5.2) 05/31/25 03:00 Globulin 3.0 g/dL (1.3-4.6) 05/31/25 03:00 Urine Color Dark yellow (Yellow) A 05/31/25 03:11 Urine Appearance Cloudy (CLEAR) A 05/31/25 03:11 Urine pH 5.5 (5-7) 05/31/25 03:11 Ur Specific [place] 1.041 (1.005-1.030) H 05/31/25 03:11 Urine Protein Trace (Negative) A 05/31/25 03:11 Urine Glucose (UA) Negative (Normal) 05/31/25 03:11 Urine Ketones Trace (Negative) 05/31/25 03:11 Urine Blood Negative (Negative) 05/31/25 03:11 Urine Nitrate Negative (Negative) 05/31/25 03:11 Urine Bilirubin Negative (Negative) 05/31/25 03:11 Urine Urobilinogen 1.0 mg/dL (Negative) 05/31/25 03:11 Ur Leukocyte Esterase Negative (Negative) 05/31/25 03:11 Urine RBC 0-2 /hpf (0-2) 05/31/25 03:11 Urine WBC 0-5 /hpf (0-5) 05/31/25 03:11 Ur Squamous Epith Cells 0-5 /hpf (0-5) 05/31/25 03:11 Amorphous Sediment Not Reportable 05/31/25 03:11 Urine Bacteria None seen /hpf (NONE) 05/31/25 03:11 Hyaline Casts 3.30 /lpf 05/31/25 03:11 All radiology interpretation(s) finalized by discharge Discharge Plan Discharge Patient Disposition: Home Clinical Impression: Mass of right testicle, Hydrocele, right, Low back pain Condition: Stable Prescriptions: New oxycodone-acetaminophen [Percocet] 5-325 mg tablet 1 tab PO Q8H PRN (Reason: pain) Qty: 20 0RF No Action amoxicillin-pot clavulanate 875-125 mg tablet 1 tab PO BID 7 Days Qty: 14 0RF Discharge Orders: Discharge ED (Routine); Ordered 05/31/25 Ordered By: Alexis Gill Referrals: Irasema Brandt DO [Primary Care Provider, [facility]] Patient Instructions: Opioid Safety, Pain Management, Patient Portal & Earnest Instructions Activity Restrictions/Additional Instructions: Referral has been placed with case management to be seen by urology as soon as feasible. It seems most likely that the mass on your right testicle is cancerous though there is no evidence of spread anywhere else. This is likely causing the fluid around it, also known as a hydrocele. Please follow-up very closely with urology for definitive management. Stand Alone Forms: Work/School Release Print Language: Tamazight Coding Level of Care Code ED Supervisor Food Checkers And Cashiers for Anila Johnson
== END 2025-05-31 05:39 | disposition home or self-care (01) ==
PROVIDERS: Emergency Provider Student in an Organized Health Care Education/Training Program; PCP Family Medicine
DX: R22.2 Localized swelling, mass and lump, trunk (principal); N43.3 Hydrocele, unspecified; M54.50 Low back pain, unspecified
CPT/HCPCS: 74177; 76870; 80053; 81001; 85025; 96361; 96374; 99285; J2270; J7030